=== PATIENT | female | born 1935 | race Caucasian/White ===

== ENCOUNTER 2016-10-08 17:02 | Emergency (ER) | payer OTHER ==
[~2016-10-08] VITALS: Ht 157.5 cm; Wt 82.0 kg
[~2016-10-08 17:02] MED LIST: ACCUPRIL40 MG PO; BENADRYL25 MG PO; CELECOXIB200 MG PO; CYANOCOBALAM1000 MCG PO; FEOSOL325 MG PO; GLUCOPHAGE500 MG PO; GLUCOTROL5 MG PO; HYDROCODON-ACE1 EAC7 PO; LITE COAT ASPI325 M1 PO; OCUVITE LUTEIN1 EACH PO; SENNA PLUS TAB1 EACH PO; TRAMADOL HCL50 MG PO; TUMS500 MG PO; TYLENOL EXTRA500 MG PO; VITAMIN D31000 UNIT PO; XANAX0.25 MG PO; XARELTO10 MG PO
[2016-10-08 19:06] LABS: HEMATOCRIT 38.5 % (36.0-46.0); MCH 29.5 PG (29.0-34.0); MCHC 31.2 G/DL (30.0-36.0); MCV 94.6 FL (83-99); MEAN PLAT.VOLUME 10.6 uM^3 (9.5-12.4); PLATELET COUNT 323 K/uL (156-360); RBC DIS.WIDTH-CV 13.2 % (11.8-14.6); RBC DIS.WIDTH-SD 45.4 % (39-53); RED BLOOD COUNT 4.07 M/uL (3.80-5.20); WHITE BLOOD COUNT 10.8 K/uL (4.1-10.2)
[2016-10-08 19:20] LABS: CHLORIDE 105 mEq/L (99-109); POTASSIUM 4.4 mEq/L (3.7-5.4); SODIUM 142 mEq/L (136-147)
[2016-10-08 19:22] LABS: GLUCOSE 143 mg/dL (70-99)
[2016-10-08 19:24] LABS: ANION GAP 11 MEQ/L (2-14); TOTAL BILIRUBIN 0.3 mg/dL (0.0-1.0)
[2016-10-08 19:26] LABS: ALKALINE PHOSPHATASE 99 IU/L (3-129); GFR ESTIMATE (CALCULATED) 33 mL/min/
[2016-10-08 19:27] LABS: UREA NITROGEN (BUN) 36 mg/dL (9-23)
[2016-10-08 19:35] LABS: TROP-I INTERPRETATION NEGATIVE; TROPONIN-I < 0.01 ng/mL (0.0-0.30)
[2016-10-08 19:39] LABS: ADD MIUA? NO; BILIRUBIN NEGATIVE; BLOOD NEGATIVE; COLOR YELLOW ((YELLOW)); GLUCOSE (STRIP) NEGATIVE; KETONES NEGATIVE; LEUKOCYTES NEGATIVE; NITRITE NEGATIVE; PROTEIN (STRIP) NEGATIVE; SPECIFIC GRAVITY 1.013 (1.000-1.030); UROBILINOGEN 0.2 MG/DL (0.2-1.0)
[2016-10-08] MEDS ORDERED: NORCO 5/3251 TABLET PO (21:16)
[2016-10-08 21:35] VITALS: BP 155/96
== END 2016-10-08 21:38 | disposition home or self-care (01) ==
LOC: RME 17:02 → EME 17:02 → RME 21:38
PROVIDERS: Physician Assistant
DX: M54.5 Low back pain (principal); G89.29 Other chronic pain; I10 Essential (primary) hypertension; K21.9 Gastro-esophageal reflux disease without esophagitis
CPT/HCPCS: 71020; 74176; 80053; 81003; 84484; 85027; 93005; 99281; 99284